=== PATIENT | male | born 1965 | race Caucasian/White ===

== ENCOUNTER 2017-05-18 12:10 | Emergency (ER) | payer MEDICAID ==
[~2017-05-18] VITALS: Ht 193 cm; Wt 126.4 kg
[~2017-05-18 12:10] MED LIST: DILT30TA38 PO; FLUO-191 PO; FOLI1 PO; LEVO25TA9 PO; LISI-660 PO; MULT-1238 PO; THIA100 PO
[2017-05-18 13:17] LABS: BASOPHILS % (AUTO) 0.7 % (0.0-2.0); EOSINOPHILS % (AUTO) 1.5 % (1.0-6.0); HEMATOCRIT 44.6 % (41-53); HEMOGLOBIN 14.8 g/dL (13.5-17.5); LYMPHOCYTES # (AUTO) 2.9 K/uL (1.0-4.8); LYMPHOCYTES % (AUTO) 33.3 % (22.0-44.0); MEAN CORPUSCULAR HEMOGLOBIN 31.4 pg (26.0-34.0); MEAN CORPUSCULAR HGB CONC 33.1 G/dL (31.0-37.0); MEAN CORPUSCULAR VOLUME 95 fL (80-100); MONOCYTES # (AUTO) 1.1 K/uL (0.1-1.0); MONOCYTES % (AUTO) 13.2 % (2.0-9.0); NEUTROPHILS # (AUTO) 4.4 K/uL (1.8-7.7); NEUTROPHILS % (AUTO) 51.3 % (40.0-70.0); PLATELET COUNT (AUTO) 219 K/uL (150-450); RED BLOOD CELL COUNT(AUTO) 4.71 MIL/uL (4.50-5.90); RED CELL DISTRIBUTION WIDTH 16.9 % (11.5-14.5); WHITE BLOOD COUNT (AUTO) 8.6 K/uL (4.5-11.0)
[2017-05-18 13:25] LABS: ANION GAP 11 mmol/L (8-16); CARBON DIOXIDE 23 mmol/L (22-29); CHLORIDE 102 mmol/L (98-107); CREATININE 0.96 mg/dL (0.60-1.30); GLOMERULAR FILTR. RATE CALC > 60 mL/min (>60); POTASSIUM 3.9 mmol/L (3.5-5.1); SODIUM SERUM 136 mmol/L (136-145); UREA NITROGEN, BLOOD 13 mg/dL (7-18)
[2017-05-18 13:31] LABS: ALANINE AMINOTRANSFERASE 69 U/L (12-78); ALBUMIN 3.5 g/dL (3.4-5.0); ASPARTATE AMINOTRANSFERASE 53 U/L (15-37); BILIRUBIN,TOTAL 0.2 mg/dL (0.1-1.0)
[2017-05-18 14:11] VITALS: BP 120/78
== END 2017-05-18 14:51 | disposition home or self-care (01) ==
LOC: EMS 12:12
DX: F32.9 Major depressive disorder, single episode, unspecified (principal); T51.91XA Toxic effect of unspecified alcohol, accidental (unintentional), initial encounter; Y92.89 Other specified places as the place of occurrence of the external cause
CPT/HCPCS: 36415; 80053; 85025; 99284; G0480

== ENCOUNTER 2017-11-11 19:31 | Emergency (ER) | payer MEDICAID ==
[~2017-11-11] VITALS: Ht 193 cm; Wt 125.0 kg
[2017-11-12 01:16] VITALS: BP 119/83
== END 2017-11-12 01:28 | disposition home or self-care (01) ==
LOC: EMS 19:34
DX: F10.129 Alcohol abuse with intoxication, unspecified (principal); R07.81 Pleurodynia; Z79.899 Other long term (current) drug therapy
CPT/HCPCS: 36415; 71101; 99285; G0480